=== PATIENT | female | born 1990 | race Two or more races ===

== ENCOUNTER 2021-09-27 06:51 | Inpatient (IN) ==
[2021-09-27] MEDS ORDERED: D5 1/2 NS 1,000 ML 1,000 ML IV ONE (07:26)
[2021-09-27] MEDS ORDERED: BETADINE SOLN ONE (07:26)
[2021-09-27] MEDS ORDERED: PITOCIN ONE (07:26)
[2021-09-27] MEDS ORDERED: D5 1/2 NS 1,000 mL + PITOCIN 20 UNITS/L IV 20 UNITS/1,000 ML BAG IV ONE (07:27)
[2021-09-27] MEDS ORDERED: D5 LR + PITOCIN 10 UNITS/L 10 UNITS/1,000 ML BAG IV ONE (07:27)
[2021-09-27] MEDS ORDERED: PHENERGAN INJ 25 MG IM PRN ×2 (08:14→15:29)
[2021-09-27] MEDS ORDERED: PITOCIN IVP ONE (08:14)
[2021-09-27] MEDS ORDERED: D5 LR + PITOCIN 10 UNITS/L 10 UNITS/1,000 ML BAG IV PRN (08:14)
[2021-09-27] MEDS ORDERED: REGLAN INJ 10 MG VIAL IVP PRN (08:14)
[2021-09-27] MEDS ORDERED: LR 1,000 ML IV 1,000 ML IV ONE (08:22)
[2021-09-27] MEDS ORDERED: EPHEDRINE SULFATE INJ ONE (08:22)
[2021-09-27 08:34] LABS: BILIRUBIN,URINE NEGATIVE (NEGATIVE); BLOOD/HEMOGLOBIN,URINE 1+ (NEGATIVE); GLUCOSE, URINE NEGATIVE (NEGATIVE); KETONES,URINE NEGATIVE (NEGATIVE); LEUKOCYTE ESTERASE ,URINE 3+ (NEGATIVE); NITRITES,URINE NEGATIVE (NEGATIVE); PROTEIN,URINE 2+ (NEGATIVE); UROBILINOGEN,URINE NORMAL (NORMAL)
[2021-09-27 08:36] LABS: APPEARANCE,URINE HAZY (CLEAR); COLOR,URINE PINK (YELLOW)
[2021-09-27 08:43] LABS: AMORPHOUS SEDIMENT,UR 2+ /HPF (NEGATIVE); BACTERIA,URINE 1+ /HPF (NEGATIVE); SQUAMOUS EPITHELIAL CELL,UR MANY /HPF (NEGATIVE)
[2021-09-27 08:47] LABS: BASOPHILS # (AUTO) 0.1 X10^3/uL (0.0-0.1); BASOPHILS % (AUTO) 0.8 % (0.2-1.0); EOSINOPHILS # (AUTO) 0.1 x10^3/uL (0.0-0.2); EOSINOPHILS % (AUTO) 0.5 % (0.9-2.9); HEMATOCRIT 29.4 % (36.0-47.0); HEMOGLOBIN 9.7 g/dL (12.0-16.0); LYMPHOCYTES # (AUTO) 2.5 X10^3/uL (1.3-2.9); LYMPHOCYTES % (AUTO) 22.3 % (21.0-51.0); MEAN CORPUSCULAR HEMOGLOBIN 27.1 pg (27.0-34.0); MEAN CORPUSCULAR HGB CONC 33.1 g/dL (33.0-35.0); MEAN PLATELET VOLUME 9.6 fL (7.4-11.0); MONOCYTES # (AUTO) 0.7 x10^3/uL (0.3-0.8); MONOCYTES % (AUTO) 6.5 % (0.0-13.0); NEUTROPHILS # (AUTO) 7.8 x10^3/uL (2.2-4.8); NEUTROPHILS % (AUTO) 69.9 % (42.0-75.0); PLATELET COUNT 251 X10^3/uL (150.0-450.0); RED BLOOD COUNT 3.58 X10^6/uL (3.5-5.4); RED CELL DISTRIBUTION WIDTH 15.4 % (11.6-16.5); WHITE BLOOD COUNT 11.2 X10^3/uL (3.6-10.0)
[2021-09-27 08:50] LABS: BLOOD UREA NITROGEN 7 mg/dL (7-18); CALCIUM 8.5 mg/dL (8.5-10.1); CARBON DIOXIDE 25.2 mmol/L (21-32); CHLORIDE 103 mmol/L (98-107); CREATININE 0.66 mg/dL (0.55-1.02); SODIUM 138 mmol/L (136-145); eGFR NON BLACK RACES > 60 (>60)
[2021-09-27] MEDS ORDERED: D5 1/2 NS 1,000 ML 1,000 ML IV SCH (09:00)
[2021-09-27] MEDS ORDERED: STADOL INJ ONE ×2 (12:50→15:06)
[2021-09-27] MEDS: STADOL INJ IVP PRN ×2 (12:50→15:06)
[2021-09-27 14:28] LABS: BILIRUBIN,URINE NEGATIVE (NEGATIVE); BLOOD/HEMOGLOBIN,URINE 2+ (NEGATIVE); GLUCOSE, URINE NEGATIVE (NEGATIVE); KETONES,URINE NEGATIVE (NEGATIVE); LEUKOCYTE ESTERASE ,URINE 1+ (NEGATIVE); NITRITES,URINE NEGATIVE (NEGATIVE); PROTEIN,URINE 1+ (NEGATIVE); UROBILINOGEN,URINE NORMAL (NORMAL)
[2021-09-27 14:38] LABS: APPEARANCE,URINE CLEAR (CLEAR); COLOR,URINE YELLOW (YELLOW)
[2021-09-27 14:39] LABS: BACTERIA,URINE TRACE /HPF (NEGATIVE); SQUAMOUS EPITHELIAL CELL,UR FEW /HPF (NEGATIVE)
[2021-09-27 14:40] LABS: HYALINE CASTS, URINE FEW /LPF (NEGATIVE); MUCUS,URINE FEW /HPF (NEGATIVE); TRICHOMONAS,URINE FEW /HPF (NEGATIVE)
[2021-09-27] MEDS ORDERED: XYLOCAINE 1 % (PLAIN) ONE (14:58)
[2021-09-27] MEDS ORDERED: MOTRIN TAB 800 MG PO PRN ×2 (15:29→15:59)
[2021-09-27] MEDS: D5 1/2 NS 1,000 ML 1,000 ML with PITOCIN 20 UNITS IV SCH ×2 (15:36)
[2021-09-27] MEDS ORDERED: MILK OF MAGNESIA PO PRN (15:59)
[2021-09-27] MEDS ORDERED: ADACEL or BOOSTRIX TDaP VACCINE IM ONE (15:59)
[2021-09-27] MEDS ORDERED: DERMOPLAST PAIN RELIEF SPRAY TOP PRN (15:59)
[2021-09-27] MEDS ORDERED: AMBIEN PO PRN (15:59)
[2021-09-28] MEDS: D5 1/2 NS 1,000 ML 1,000 ML with PITOCIN 20 UNITS IV SCH ×2 (01:27)
[2021-09-28 05:48] LABS: HEMOGLOBIN 9.2 g/dL (12.0-16.0)
[2021-09-28] MEDS ORDERED: PRENATAL PLUS PO SCH (09:00)
[2021-09-28] MEDS ORDERED: NS 100 ML IV 100 ML with VENOFER 400 MG IV ONE ×2 (10:43)
[2021-09-28 17:00] VITALS: BP 109/61
== END 2021-09-28 17:15 | disposition home or self-care (01) | DRG 807 ==
LOC: LD 06:51
PROVIDERS: ADMIT Obstetrics & Gynecology Obstetrics; ATTEND Obstetrics & Gynecology Obstetrics
DX: O26.893 Other specified pregnancy related conditions, third trimester; Z3A.39 39 weeks gestation of pregnancy; O70.0 First degree perineal laceration during delivery; Z37.0 Single live birth